=== PATIENT | male | born 1990 | race Caucasian/White ===

== ENCOUNTER 2021-01-29 16:18 | Emergency (ER) | payer OTHER, SELFPAY ==
[2021-01-29 16:28] VITALS: BP 130/77; PULSE 74; RESP 16; TEMP 37; O2SAT 100
--- NOTE | 2021-01-29 16:44 | ED.SKABFB ---
HPI - Skin/Abscess/Foreign Bdy General Chief complaint: Skin/Abscess/Foreign Body Stated complaint: Rash Source: patient and RN notes reviewed Limitations: no limitations History of Present Illness HPI narrative: The patient, previously mostly healthy, presents with skin eruption. Patient states early this morning he went to his [place] and upon return this afternoon is noticed some pink, itchy, raised rash on his trunk and extremities consistent with poison steven. No other rashes, fever, blistering, discharge. Symptoms are mild, worse with showering Related Data Allergies Allergy/AdvReac Type Severity Reaction Status Date / Time No Known Allergies Allergy Verified 01/29/21 16:32 Review of Systems Review of Systems: General/Constitutional: No weight loss,fever Eyes: N0: Redness,discharge Ears/Nose/Throat: No: Epistaxis,ear discharge Respiratory: Denies: Hemoptysis Gastrointestinal: No Vomiting, Bleeding-rectal Skin: No Lumps, eruption Neurologic: No Focal Weakness,Sz Hematologic: Denies: Petechiae/Purpura Psychiatric: No: Suicida ideationl All Other Systems: Reviewed and Negative PMFSH Comments At time of signature, agree with nursing past medical, surgical, social and family history. There is no relevant family history pertinent to the presenting complaint Exam Narrative: General Appearance: Cooperative , Normocephalic, Conjunctiva clear Mouth/Throat: Normal appearing Neck Exam: Supple Respiratory: Airway patent, No respiratory distress Musculoskeletal: Moves all extremities, Non tender Skin: Warm, Dry classic maculopapular symptoms w/ some linear component eruption on the extremities and hairline Neurological: A&O x3 Normal affect Course Vital Signs Vital signs: Vital Signs Temperature 98.6 F 01/29/21 16:28 Pulse Rate 74 01/29/21 16:28 Respiratory Rate 16 01/29/21 16:28 Blood Pressure 130/77 01/29/21 16:28 Pulse Oximetry 100 01/29/21 16:28 Temperature 98.6 F 01/29/21 16:28 Pulse Rate 74 01/29/21 16:28 Respiratory Rate 16 01/29/21 16:28 Blood Pressure 130/77 01/29/21 16:28 Pulse Oximetry 100 01/29/21 16:28 Discharge Plan Discharge Clinical Impression: Contact dermatitis Qualifiers: Contact dermatitis type: irritant Contact dermatitis trigger: non-food plants Qualified Code(s): L24.7 - Irritant contact dermatitis due to plants, except food Patient Disposition: Home, Self-Care Condition: Stable Instructions: Contact Dermatitis (ED) Additional Instructions: You may take OTC preparations like antihistamines [Claritin, Susan, etc.] with these prescription meds Prescriptions: New prednisone 20 mg tablet 60 mg PO DAILY Qty: 15 RF: 0 methylprednisolone [Methylpred DP] 4 mg tablets,dose pack See Rx Instructions .ROUTE .COMPLEX Qty: 21 RF: 0 Follow-up/Referrals: PHYSICIAN,WELDING ESTIMATOR [Primary Care Provider] -
== END 2021-01-29 16:52 | disposition home or self-care (01) ==
PROVIDERS: Emergency Provider Emergency Medicine
DX: L24.7 Irritant contact dermatitis due to plants, except food (principal)
CPT/HCPCS: 99213; G0463

== ENCOUNTER 2024-04-06 11:08 | Outpatient (CLI) | payer BC, SELFPAY ==
--- NOTE | ~2024-04-06 | US_ITS ---
Renal-Bladder ultrasound Clinical History: Family history of renal cell carcinoma Technique: Real-time sonographic imaging of the kidneys and urinary bladder was performed. Findings: The right kidney measures 12.1 cm in length and the left kidney measures 11.7 cm. There is no hydronephrosis or renal calculus identified. Renal cortical echogenicity is within normal limits. No renal mass lesion is identified. The urinary bladder is moderately distended at the time of this exam. No intraluminal echoes are iden tified. No abnormal wall thickening is seen. Impression: Unremarkable ultrasound of the kidneys and urinary bladder. Reviewed, dictated and finalized at location M. ATIONAL RESOURCE COORDINATOR Impression: Unremarkable ultrasound of the kidneys and urinary bladder.
== END 2024-04-06 11:09 | disposition home or self-care (01) ==
DX: Z80.51 Family history of malignant neoplasm of kidney (principal)
CPT/HCPCS: 76775